=== PATIENT | female | born 1980 | race African-American/Black ===

== ENCOUNTER 2018-07-19 15:50 | Emergency (ER) | payer MEDICAID ==
[~2018-07-19] VITALS: Ht 165.1 cm; Wt 55.0 kg
[2018-07-19] MEDS ORDERED: KETOROLAC 60MG/2ML VIAL IM NR (18:55)
[2018-07-19 21:14] VITALS: BP 121/70
== END 2018-07-19 21:15 | disposition home or self-care (01) ==
LOC: ER 15:50
DX: S16.1XXA Strain of muscle, fascia and tendon at neck level, initial encounter (principal); S39.012A Strain of muscle, fascia and tendon of lower back, initial encounter; V49.88XA Car occupant (driver) (passenger) injured in other specified transport accidents, initial encounter; Y93.89 Activity, other specified; Y92.89 Other specified places as the place of occurrence of the external cause; Y99.8 Other external cause status
CPT/HCPCS: 70450; 71045; 72070; 72100; 72125; 96372; 99284; J1885

== ENCOUNTER 2023-01-31 04:20 | Emergency (ER) | payer MEDICAID ==
[~2023-01-31] VITALS: Ht 172.7 cm; Wt 64.0 kg
[2023-01-31 04:25] VITALS: O2SAT 99
[2023-01-31 05:00] LABS: BASOPHILS % 0.8 % (0.0-2.0); EOSINOPHILS % 0.5 % (0.0-5.0); HEMATOCRIT. 38.1 % (36.0-48.0); LYMPHOCYTES % 32.4 % (20.0-50.0); MEAN CORPUSCULAR HEMOGLOBIN 32.1 pg (28.0-32.0); MEAN CORPUSCULAR HGB CONC 34.1 g/dL (31.0-37.0); MEAN CORPUSCULAR VOLUME 94.1 fL (81.0-99.0); MEAN PLATELET VOLUME 7.6 fl (7.4-10.4); MONOCYTES % 8.4 % (2.0-8.0); NEUTROPHILS % 57.9 % (40.0-76.0); PLATELET 217 x1000/uL (130-400); RED BLOOD CELL COUNT 4.05 mill/uL (4.2-5.4); RED CELL DISTRIBUTION WIDTH 13.5 % (11.6-14.6); WHITE BLOOD COUNT 6.6 x1000/uL (4.5-11.0)
[2023-01-31 05:12] LABS: CHLORIDE 113 mEq/L (98-107); INDEX HEMOLYSI 1 (1-3); INDEX ICTERIC 1 (1-4); INDEX LIPEMIC 1 (1-3); POTASSIUM 3.1 mEq/L (3.5-5.1); SODIUM 137 mEq/L (136-145)
[2023-01-31 05:17] LABS: HCG SCREEN NEGATIVE
[2023-01-31 05:22] LABS: ALANINE AMINOTRANSFERASE 13 IU/L (13-61); ALBUMIN 3.8 g/dL (3.4-5.0); ASPARTATE AMINOTRANSFERASE 9 IU/L (15-37); BILIRUBIN TOTAL 0.5 mg/dL (0.1-1.0); CALCIUM 8.6 mg/dL (8.5-10.1); CARBON DIOXIDE 22 mEq/L (21-32); CREATININE 0.9 mg/dL (0.6-1.3); GLUCOSE 95 mg/dL (70-105); PROTEIN TOTAL 7.7 g/dL (6.0-8.3); TROPONIN I HIGH SENSITIVITY 6 ng/L (<54); UREA NITROGEN BLOOD 10 mg/dL (7-21)
[2023-01-31] MEDS ORDERED: SODIUM CHLORIDE 0.9% 1,000 ML IV ONE (10:00)
[2023-01-31] MEDS ORDERED: POTASSIUM CHLORIDE 20MEQ TABLET SR PO ONE (10:00)
[2023-01-31 12:22] VITALS: BP 144/78; PULSE 64; RESP 18; TEMP 98.2
== END 2023-01-31 12:22 | disposition home or self-care (01) ==
LOC: ER 04:20
DX: E86.0 Dehydration (principal)
CPT/HCPCS: 80053; 84703; 85025; 84484; 36415; 71045; 93005; 96360; 99285; J7030; Z7610 ×2